=== PATIENT | male | born 1990 | race African-American/Black ===

== ENCOUNTER → 2016-04-09 | Outpatient (CLI) | payer BC ==
[2016-04-09 12:32] LABS: Basophils # (auto) 0 uL; Basophils % (auto) 0.2 % (0.0-2.0); Eosinophils # (auto) 0.1 uL; Eosinophils % (auto) 1.2 % (0.0-7.0); Hematocrit 47.7 % (41.0-53.0); Hemoglobin 15.9 g/dL (13.5-17.5); Lymphocytes # (auto) 1.7 uL; Lymphocytes % (auto) 17.1 % (10.0-50.0); Mean Corpuscular Hemoglobin 29.8 pg (28.0-32.0); Mean Corpuscular Hgb Conc. 33.3 g/dL (32.0-36.0); Mean Corpuscular Volume 89.3 fL (80.0-100.0); Mean Platelet Volume 8.4 fL (7.4-10.4); Monocytes # (auto) 0.6 uL; Neutrophils # (auto) 7.4 uL; Neutrophils % (auto) 75.5 % (37.0-80.0); Platelet Count (auto) 286 10^3/uL (140-450); Red Cell Distribution Width 11.9 % (11.6-16.0); White Blood Cell 9.8 10^3/uL (4.4-10.8)
[2016-04-09 14:03] LABS: Albumin 4.4 g/dL (3.4-5.0); BUN/Creatinine Ratio 21.8; Bilirubin, Total 0.8 mg/dL (0.2-1.0); Calcium 8.7 mg/dL (8.5-10.1); Potassium 3.4 mmol/L (3.5-5.1); Total Protein 7.9 g/dL (6.4-8.2)
== END | disposition home or self-care (01) ==
LOC: LAB 12:07
PROVIDERS: ATTEND Physician Assistant
DX: R10.9 Unspecified abdominal pain (principal); F41.9 Anxiety disorder, unspecified; R25.8 Other abnormal involuntary movements
CPT/HCPCS: 36415; 80053; 80061; 82306; 82607; 83036; 84403; 84443; 85025; 85049

== ENCOUNTER → 2016-07-06 | Outpatient (CLI) | payer BC | END | disposition home or self-care (01) | LOC: LAB 10:19 | PROVIDERS: ATTEND Physician Assistant | DX: N52.1 Erectile dysfunction due to diseases classified elsewhere (principal); E29.1 Testicular hypofunction | CPT/HCPCS: 36415; 84403 ==

== ENCOUNTER → 2020-05-18 | Outpatient (CLI) | payer OTHER ==
[2020-05-18 08:49] LABS: Basophils # (auto) 0 10 ^3/uL (0-0.2); Basophils % (auto) 0.9 % (0.0-2.0); Eosinophils # (auto) 0.2 10 ^3/uL (0-0.8); Eosinophils % (auto) 2.8 % (0.0-7.0); Hematocrit 45.8 % (41.0-53.0); Lymphocytes # (auto) 1.6 10 ^3/uL (0.4-5.4); Mean Corpuscular Hemoglobin 30.3 pg (28.0-32.0); Mean Corpuscular Hgb Conc. 34.9 g/dL (32.0-36.0); Mean Corpuscular Volume 86.7 fL (80.0-100.0); Monocytes # (auto) 0.4 10 ^3/uL (0-1.3); Monocytes % (auto) 7.9 % (0.0-12.0); Neutrophils # (auto) 3.2 10 ^3/uL (1.6-8.6); Neutrophils % (auto) 58.4 % (37.0-80.0); Platelet Count (auto) 265 10^3/uL (140-450); Red Blood Cells 5.28 10^6/uL (4.5-5.90); Red Cell Distribution Width 12.4 % (11.8-14.3); White Blood Cell 5.5 10^3/uL (4.4-10.8)
[2020-05-18 09:37] LABS: Albumin 4.1 g/dL (3.4-5.0); Potassium 4.2 mmol/L (3.5-5.1)
[2020-05-18 09:42] LABS: BUN/Creatinine Ratio 17.8; Total Protein 7.6 g/dL (6.4-8.2)
[2020-05-18 11:23] LABS: Urine Bacteria NONE SEEN /hpf (None Seen); Urine Blood Negative /uL (Negative); Urine WBC <1 /hpf (0 - 3)
== END | disposition home or self-care (01) ==
LOC: LAB 08:16
PROVIDERS: ATTEND Internal Medicine
DX: R13.10 Dysphagia, unspecified (principal)
CPT/HCPCS: 36415; 80053; 80061; 81001; 82150; 82306; 83036; 83690; 84443; 85025

== ENCOUNTER → 2020-12-24 | Outpatient (CLI) | payer OTHER ==
[2020-12-26 10:37] LABS: Cholesterol 233 mg/dL (< 200)
[2020-12-26 10:41] LABS: HDL Cholesterol 58 mg/dL (40-59); LDL Cholesterol 156 mg/dL (< 100); Triglycerides 71 mg/dL (< 150)
== END | disposition home or self-care (01) ==
LOC: LAB 11:23
PROVIDERS: ATTEND Internal Medicine Gastroenterology
DX: I10 Essential (primary) hypertension (principal); E78.5 Hyperlipidemia, unspecified; R10.9 Unspecified abdominal pain
CPT/HCPCS: 36415; 80061; 82306; 82565

== ENCOUNTER 2021-04-19 17:11 | Emergency (ER) | payer OTHER ==
[~2021-04-19] VITALS: Ht 180.3 cm; Wt 88.5 kg
[2021-04-19] MEDS ORDERED: TETRACAINE HCL 0.5% OPTH(EYE) SOLN 4ML LEFTEYE ONE (19:45)
[2021-04-19] MEDS ORDERED: FLUORESCEIN SOD OPTH TEST STRIP LEFTEYE ONE (19:45)
[2021-04-19 20:03] VITALS: BP 126/66
== END 2021-04-19 20:59 | disposition home or self-care (01) ==
LOC: ER 17:13
DX: T15.02XA Foreign body in cornea, left eye, initial encounter (principal); X58.XXXA Exposure to other specified factors, initial encounter; Y93.89 Activity, other specified; Y92.89 Other specified places as the place of occurrence of the external cause; Y99.8 Other external cause status

== ENCOUNTER → 2021-04-22 | Outpatient (CLI) | payer OTHER ==
[2021-04-22 10:43] LABS: Bilirubin, Direct 0.3 mg/dL (0-0.2); Total Protein 7.3 g/dL (6.4-8.2)
== END | disposition home or self-care (01) ==
LOC: LAB 09:38
PROVIDERS: ATTEND Internal Medicine
DX: E78.5 Hyperlipidemia, unspecified (principal)
CPT/HCPCS: 36415; 80061; 80076

== ENCOUNTER → 2021-11-21 | Outpatient (CLI) | payer OTHER | END | disposition home or self-care (01) | LOC: LAB 07:31 | PROVIDERS: ATTEND Internal Medicine | DX: N52.9 Male erectile dysfunction, unspecified (principal) | CPT/HCPCS: 36415; 84403 ==

== ENCOUNTER → 2022-01-12 | Outpatient (CLI) | payer OTHER ==
[2022-01-12 12:23] LABS: Basophils # (auto) 0 10 ^3/uL (0-0.2); Basophils % (auto) 0.6 % (0.0-2.0); Eosinophils # (auto) 0.2 10 ^3/uL (0-0.8); Eosinophils % (auto) 2.5 % (0.0-7.0); Hematocrit 47.6 % (41.0-53.0); Hemoglobin 16.1 g/dL (13.5-17.5); Lymphocytes # (auto) 1.8 10 ^3/uL (0.4-5.4); Lymphocytes % (auto) 28.7 % (10.0-50.0); Mean Corpuscular Hemoglobin 29.4 pg (28.0-32.0); Mean Corpuscular Hgb Conc. 33.9 g/dL (32.0-36.0); Mean Corpuscular Volume 86.6 fL (80.0-100.0); Monocytes # (auto) 0.4 10 ^3/uL (0-1.3); Monocytes % (auto) 5.9 % (0.0-12.0); Neutrophils % (auto) 62.3 % (37.0-80.0); Nucleated Red Blood Cells % 0.1 %; Red Cell Distribution Width 11.9 % (11.8-14.3); White Blood Cell 6.4 10^3/uL (4.4-10.8)
[2022-01-12 12:50] LABS: Potassium 3.8 mmol/L (3.5-5.1)
[2022-01-12 12:55] LABS: BUN/Creatinine Ratio 16.3; Calcium 8.8 mg/dL (8.5-10.1)
== END | disposition home or self-care (01) ==
LOC: LAB 11:10
PROVIDERS: ATTEND Internal Medicine
DX: M25.561 Pain in right knee (principal)
CPT/HCPCS: 36415; 80048; 85025; 85652

== ENCOUNTER → 2022-04-06 | Outpatient (CLI) | payer OTHER ==
[2022-04-06 08:38] LABS: Albumin 4.3 g/dL (3.4-5.0); Bilirubin, Direct 0.2 mg/dL (0-0.2); Uric Acid 5.6 mg/dL (3.5-7.2)
[2022-04-06 08:41] LABS: Bilirubin, Total 0.8 mg/dL (0.2-1.0); Total Protein 7.4 g/dL (6.4-8.2)
== END | disposition home or self-care (01) ==
LOC: LAB 07:58
PROVIDERS: ATTEND Internal Medicine
DX: I10 Essential (primary) hypertension (principal); E78.5 Hyperlipidemia, unspecified
CPT/HCPCS: 36415; 80061; 80076; 84443; 84550

== ENCOUNTER → 2023-12-17 | Outpatient (CLI) | payer OTHER ==
[2023-12-17 07:56] LABS: Urine Bacteria None Seen /hpf (None Seen); Urine WBC None Seen /hpf (0 - 3)
[2023-12-17 08:23] LABS: Urine Blood Negative /uL (Negative); Urine Clarity Clear (Clear); Urine Color Colorless (Yellow); Urine Protein, UAD Negative (Negative); Urine Specific Gravity 1.007 (1.001-1.035); Urine Urobilinogen Normal (Negative); Urine pH 6.5 (5.0-9.0)
[2023-12-17 08:42] LABS: Erythrocyte Sedimentation Rate 1 mm/hr (0-20)
[2023-12-17 09:03] LABS: Alanine Aminotransferase 32 U/L (7-40); Alkaline Phosphatase 61 U/L (46-116); Anion Gap 6 (5-15); Calcium 9.5 mg/dL (8.7-10.4); Carbon Dioxide 26 mmol/L (20-31); Chloride 106 mmol/L (98-107); Potassium 4.1 mmol/L (3.5-5.1); Sodium 138 mmol/L (136-145)
[2023-12-17 09:04] LABS: Blood Urea Nitrogen 16 mg/dL (9-23); Glucose 85 mg/dL (74-106)
[2023-12-17 09:05] LABS: CRP High Sensitivity 0.04 mg/dL (<1.0)
[2023-12-17 09:06] LABS: Albumin 4.6 g/dL (3.2-4.8); Amylase 53 U/L (30-118); Aspartate Aminotransferase 19 U/L (13-40); Bilirubin, Total 0.7 mg/dL (0.2-1.0)
[2023-12-17 09:07] LABS: Total Protein 7.3 g/dL (5.7-8.2)
[2023-12-17 10:35] LABS: Lipase 49 U/L (12-53)
== END | disposition home or self-care (01) ==
LOC: LAB 07:46
PROVIDERS: ATTEND Internal Medicine
DX: I10 Essential (primary) hypertension (principal); R10.9 Unspecified abdominal pain; E78.5 Hyperlipidemia, unspecified
CPT/HCPCS: 36415; 80053; 81001; 82150; 83036; 83690; 85652; 86141

== ENCOUNTER → 2024-03-20 | Outpatient (CLI) | payer OTHER ==
[2024-03-20 09:18] LABS: Alkaline Phosphatase 63 U/L (46-116); Anion Gap 6 (5-15); Aspartate Aminotransferase 27 U/L (13-40); BUN/Creatinine Ratio 21.8 (10.0-20.0); Blood Urea Nitrogen 22 mg/dL (9-23); Calcium 9.7 mg/dL (8.7-10.4); Carbon Dioxide 29 mmol/L (20-31); Chloride 104 mmol/L (98-107); Glucose 93 mg/dL (74-106); Sodium 139 mmol/L (136-145)
[2024-03-20 09:19] LABS: Albumin 4.4 g/dL (3.2-4.8); Bilirubin, Total 0.5 mg/dL (0.2-1.0); Total Protein 7.1 g/dL (5.7-8.2)
[2024-03-20 09:34] LABS: Alanine Aminotransferase 44 U/L (7-40)
== END | disposition home or self-care (01) ==
LOC: LAB 07:25
PROVIDERS: ATTEND Internal Medicine
DX: I10 Essential (primary) hypertension (principal)
CPT/HCPCS: 36415; 80053

== ENCOUNTER 2024-09-25 07:17 | Outpatient (CLI) | payer OTHER ==
[2024-09-25 07:58] LABS: Albumin 4.6 g/dL (3.2-4.8); Alkaline Phosphatase 57 U/L (46-116); Anion Gap 10 (5-15); BUN/Creatinine Ratio 21.9 (10.0-20.0); Calcium 9.7 mg/dL (8.7-10.4); Carbon Dioxide 27 mmol/L (20-31); Chloride 105 mmol/L (98-107); Cholesterol 170 mg/dL (< 200); Glucose 91 mg/dL (74-106); Hematocrit 43.6 % (41.0-53.0); Hemoglobin 15.0 g/dL (13.5-17.5); Mean Corpuscular Hemoglobin 29.8 pg (28.0-32.0); Mean Corpuscular Volume 86.4 fL (80.0-100.0); Nucleated Red Blood Cells % 0.2 %; Potassium 3.7 mmol/L (3.5-5.1); Sodium 142 mmol/L (136-145); Total Protein 7.1 g/dL (5.7-8.2); Triglycerides 134 mg/dL (< 150)
[2024-09-25 07:59] LABS: Bilirubin, Total 0.9 mg/dL (0.2-1.0)
[2024-09-25 08:00] LABS: Alanine Aminotransferase 40 U/L (7-40); Blood Urea Nitrogen 23 mg/dL (9-23); HDL Cholesterol 71 mg/dL (40-59)
== END 2024-09-25 17:00 | disposition home or self-care (01) ==
LOC: LAB 07:17
PROVIDERS: ATTEND Internal Medicine
DX: I10 Essential (primary) hypertension (principal); E78.5 Hyperlipidemia, unspecified; K76.9 Liver disease, unspecified
CPT/HCPCS: 36415; 80053; 80061; 83036; 84443; 85025

== ENCOUNTER → 2025-03-21 | Outpatient (CLI) | payer OTHER ==
[2025-03-21 08:12] LABS: Albumin 4.5 g/dL (3.2-4.8); Alkaline Phosphatase 68.0 U/L (46-116); Bilirubin, Direct 0.2 mg/dL (<0.3); Bilirubin, Total 0.6 mg/dL (0.2-1.0); Cholesterol 178.0 mg/dL (< 200); Creatine Kinase IFCC 125.0 U/L (46-171); Total Protein 7.4 g/dL (5.7-8.2); Triglycerides 73.0 mg/dL (< 150)
[2025-03-21 08:14] LABS: Alanine Aminotransferase 57.0 U/L (7-40); HDL Cholesterol 68.0 mg/dL (40-59)
== END | disposition home or self-care (01) ==
LOC: LAB 07:07
PROVIDERS: ATTEND Internal Medicine
DX: E78.5 Hyperlipidemia, unspecified (principal); E55.9 Vitamin D deficiency, unspecified
CPT/HCPCS: 36415; 80061; 80076; 82550; 83036